=== PATIENT | male | born 1960 | race African-American/Black ===

== ENCOUNTER 2021-09-19 20:22 | Emergency (ER) | payer MEDICARE, SELFPAY ==
[~2021-09-19 20:22] MED LIST: Iopamidol 370 76% 100 ML VIAL ONE
[2021-09-19] MEDS ORDERED: Sodium Chloride 0.9% 1,000 ML ONE (21:28)
[2021-09-19] MEDS ORDERED: Morphine 4 MG/ML VIAL ONE (21:28)
[2021-09-19] MEDS ORDERED: Ondansetron PF 4 MG/2 ML Vial ONE (21:29)
[2021-09-19 22:02] LABS: Hemoglobin 14.2 g/dL (14.0-18.0); Mean Corpuscular HGB CONC 29.7 g/dL (32.0-36.0); Mean Corpuscular Hemoglobin 25.8 pg (27.0-31.0); Mean Corpuscular Volume 87.2 fL (78.0-98.0); Red Blood Cell (RBC) Count 5.51 mill/uL (4.70-6.10); White Blood Cell (WBC) Count 7.6 thou/uL (4.8-10.8)
[2021-09-19 22:03] LABS: #Lymphocytes 0.4 thou/uL (1.20-3.40); #Monocytes 0.2 thou/uL (0.11-0.59); %Basophils 0.6 % (0.0-1.0); %Eosinophils 0.1 % (0.0-10.0); %Lymphocytes 4.6 % (21.0-51.0); %Monocytes 2.9 % (0.0-10.0); %Neutrophils 91.8 % (42.0-75.0); Manual Diff?? NO; Mean Platelet Volume 9.8 fL (7.4-10.4); Platelet Count 123 thou/uL (130-400); RBC Distribution Width 16.3 % (11.5-14.5)
[2021-09-19 22:23] LABS: Carbon Dioxide 17 mmol/L (23-31); Chloride 106 mmol/L (98-107); Potassium 5.6 mmol/L (3.5-5.1); Sodium 140 mmol/L (136-145)
[2021-09-19 22:24] LABS: Anion Gap 16 mmol/L (10-20); BUN (Urea Nitrogen) 12 mg/dL (8.4-25.7); Calc. Creatinine Clearance 0 mL/min (70-130); Glucose 147 mg/dL (80-115)
[2021-09-19 22:25] LABS: ALT (SGPT) 27 U/L (8-55); AST (SGOT) 42 U/L (5-34); Albumin 4.5 g/dL (3.4-4.8); Alkaline Phosphatase 136 U/L (40-110); Bilirubin, Total 0.7 mg/dL (0.2-1.2); CK (CPK) 66 U/L (30-200); Calcium 9.7 mg/dL (7.8-10.44); Lipase 2 U/L (8-78); Protein, Total 8.5 g/dL (5.8-8.1)
[2021-09-19 23:32] LABS: Bilirubin Negative (Negative); Blood, Urine Trace (Negative); Clarity Clear (Clear); Glucose, Urine (Dipstick) >=1000 mg/dL (Negative); Ketone, Urine 15 mg/dL (Negative); Leukocyte Negative (Negative); Nitrite Negative (Negative); Protein, Urine (Dipstick) Negative (Neg-Trace); Urobilinogen 0.2 mg/dL (Less than 2)
[2021-09-19 23:36] LABS: Bacteria/HPF None Seen HPF (None Seen); RBC/HPF 0-3 HPF (0-3); Squamous Epithelial None Seen HPF (0-3); WBC/HPF 0-3 HPF (0-3)
[2021-09-19 23:41] LABS: Amphetamine Not Detected (NotDetected); Barbiturates Screen Not Detected (NotDetected); Benzodiazepine Screen Not Detected (NotDetected); Cocaine Metabolite Screen Not Detected (NotDetected); Medtox Control Line Valid? VALID (VALID); Methadone Not Detected (NotDetected); Methamphetamine Not Detected (NotDetected); Opiate Screen Detected (NotDetected); Oxycodone Screen Not Detected (NotDetected); Phencyclidine (PCP) Not Detected (NotDetected); THC/Cannabinoid Screen Detected (NotDetected); Tricyclic Screen Not Detected (NotDetected)
[2021-09-20] MEDS ORDERED: Piperacillin/Tazobactam 3.375 GM VIAL ONE (00:16)
[2021-09-20] MEDS ORDERED: INSULIN REGULAR IN 0.9 % NACL 100 UNIT/100 ML BAG ONE (00:16)
[2021-09-20] MEDS ORDERED: Sodium Chloride 0.9% 100 ML ONE (00:16)
[2021-09-20 00:38] LABS: SARS-CoV-2 NAA Rapid Test Not Detected (NotDetected)
[2021-09-20] MEDS ORDERED: Haloperidol Lactate 5 MG/ML VIAL ONE (00:59)
[2021-09-20] MEDS ORDERED: Sodium Chloride 0.45% 1,000 ML ONE ×2 (00:59→06:20)
[2021-09-20 07:37] LABS: Anion Gap 17 mmol/L (10-20); BUN (Urea Nitrogen) 11 mg/dL (8.4-25.7); Calc. Creatinine Clearance 0 mL/min (70-130); Calcium 8.6 mg/dL (7.8-10.44); Carbon Dioxide 23 mmol/L (23-31); Chloride 107 mmol/L (98-107); Glucose 126 mg/dL (80-115); Sodium 143 mmol/L (136-145)
== END 2021-09-20 09:11 | disposition home or self-care (01) ==
LOC: NAV ERS 20:22
DX: E86.0 Dehydration (principal); R11.2 Nausea with vomiting, unspecified; E87.2 Acidosis; I25.2 Old myocardial infarction; E78.5 Hyperlipidemia, unspecified; E78.00 Pure hypercholesterolemia, unspecified; I10 Essential (primary) hypertension; J45.909 Unspecified asthma, uncomplicated; F17.210 Nicotine dependence, cigarettes, uncomplicated; Z79.82 Long term (current) use of aspirin; Z79.02 Long term (current) use of antithrombotics/antiplatelets; Z20.822 Contact with and (suspected) exposure to COVID-19; Z79.899 Other long term (current) drug therapy
CPT/HCPCS: 71045; 74177; 80048; 80053; 80306; 82010; 82550; 82962; 83605; 83690; 84484; 85025; 93005; U0002; 36416; 81003; 81015; 96365; 96375; J1630; J1815; J2270; J2405; J2543; J3490; J7042; J7050; Q9967

== ENCOUNTER 2021-10-05 08:50 | Emergency (ER) | payer MEDICARE, SELFPAY ==
[2021-10-05] MEDS ORDERED: Iopamidol 370 76% 100 ML VIAL ONE (09:00)
[2021-10-05] MEDS ORDERED: Ondansetron PF 4 MG/2 ML Vial ONE ×3 (09:58→16:08)
[2021-10-05] MEDS ORDERED: Sodium Chloride 0.9% 1,000 ML ONE ×2 (10:38→16:10)
[2021-10-05 10:43] LABS: #Eosinphils 0.1 thou/uL (0.0-0.7); #Lymphocytes 0.8 thou/uL (1.20-3.40); #Monocytes 0.3 thou/uL (0.11-0.59); #Neutrophils 7.3 thou/uL (1.40-6.50); %Basophils 0.4 % (0.0-1.0); %Eosinophils 0.6 % (0.0-10.0); %Lymphocytes 9.4 % (21.0-51.0); %Monocytes 3.6 % (0.0-10.0); %Neutrophils 85.9 % (42.0-75.0); Hemoglobin 15.9 g/dL (14.0-18.0); Mean Corpuscular Hemoglobin 25.2 pg (27.0-31.0); Mean Corpuscular Volume 86.9 fL (78.0-98.0); Mean Platelet Volume 9.1 fL (7.4-10.4); Platelet Count 236 thou/uL (130-400); RBC Distribution Width 16.2 % (11.5-14.5); Red Blood Cell (RBC) Count 6.28 mill/uL (4.70-6.10); White Blood Cell (WBC) Count 8.5 thou/uL (4.8-10.8)
[2021-10-05 10:55] LABS: Bilirubin Negative (Negative); Blood, Urine Negative (Negative); Clarity Clear (Clear); Glucose, Urine (Dipstick) >=1000 mg/dL (Negative); Ketone, Urine Trace mg/dL (Negative); Leukocyte Negative (Negative); Nitrite Negative (Negative); Protein, Urine (Dipstick) Trace mg/dL (Neg-Trace); Urobilinogen 0.2 mg/dL (Less than 2)
[2021-10-05 10:58] LABS: ALT (SGPT) 28 U/L (8-55); AST (SGOT) 23 U/L (5-34); Albumin 4.9 g/dL (3.4-4.8); Alkaline Phosphatase 173 U/L (40-110); Anion Gap 18 mmol/L (10-20); BUN (Urea Nitrogen) 14 mg/dL (8.4-25.7); Bilirubin, Total 0.5 mg/dL (0.2-1.2); Calc. Creatinine Clearance 0 mL/min (70-130); Calcium 9.9 mg/dL (7.8-10.44); Carbon Dioxide 23 mmol/L (23-31); Chloride 105 mmol/L (98-107); Glucose 140 mg/dL (80-115); Lipase 8 U/L (8-78); Potassium 4.1 mmol/L (3.5-5.1); Protein, Total 8.9 g/dL (5.8-8.1); Sodium 142 mmol/L (136-145)
[2021-10-05] MEDS ORDERED: Fentanyl 100 MCG/2 ML VIAL ONE ×2 (11:36→13:28)
[2021-10-05] MEDS ORDERED: Promethazine HCl 25 MG/ML VIAL ONE (13:27)
[2021-10-05] MEDS ORDERED: Sodium Chloride 0.9% 100 ML ONE (13:28)
[2021-10-05] MEDS ORDERED: Metoprolol Tartrate 5 MG/5 ML VIAL ONE ×2 (13:30→16:09)
[2021-10-05] MEDS ORDERED: hydrALAZINE 20 MG/ML VIAL ONE (17:16)
[2021-10-05] MEDS ORDERED: Nitroglycerin 0.4 MG TAB (25 Tab Bottle) ONE (18:19)
[2021-10-05 18:31] LABS: CKMB 2.5 ng/mL (0-6.6)
== END 2021-10-05 18:56 | disposition short-term general hospital (02) ==
LOC: NAV ERS 08:50
DX: I24.9 Acute ischemic heart disease, unspecified (principal); R11.2 Nausea with vomiting, unspecified; I10 Essential (primary) hypertension; I25.2 Old myocardial infarction; E78.00 Pure hypercholesterolemia, unspecified; E78.5 Hyperlipidemia, unspecified; F17.210 Nicotine dependence, cigarettes, uncomplicated; Z79.899 Other long term (current) drug therapy
CPT/HCPCS: 36416; 74022; 74177; 80053; 81003; 82553; 83605; 83690; 84484; 85025; 93005; 96361; 96374; 96375; 96376; 36415-59; J0360; J2405; J2550; J3010; J7050; Q9967

== ENCOUNTER 2022-06-28 12:49 | Emergency (ER) | payer MEDICARE, OTHER ==
[2022-06-28] MEDS ORDERED: Sodium Chloride 0.9% 1,000 ML ONE (13:46)
[2022-06-28] MEDS ORDERED: Ondansetron PF 4 MG/2 ML Vial ONE ×2 (13:46→15:35)
[2022-06-28 14:17] LABS: #Basophils 0.1 thou/uL (0.0-0.2); #Lymphocytes 0.8 thou/uL (1.20-3.40); #Monocytes 0.3 thou/uL (0.11-0.59); #Neutrophils 6.4 thou/uL (1.40-6.50); %Basophils 0.8 % (0.0-1.0); %Eosinophils 0.5 % (0.0-10.0); %Lymphocytes 10.2 % (21.0-51.0); %Monocytes 3.8 % (0.0-10.0); %Neutrophils 84.8 % (42.0-75.0); Hemoglobin 15.4 g/dL (14.0-18.0); Mean Corpuscular HGB CONC 29.7 g/dL (32.0-36.0); Mean Corpuscular Hemoglobin 28.7 pg (27.0-31.0); Mean Corpuscular Volume 96.5 fL (78.0-98.0); Mean Platelet Volume 8.8 fL (7.4-10.4); Platelet Count 146 thou/uL (130-400); RBC Distribution Width 14.3 % (11.5-14.5); Red Blood Cell (RBC) Count 5.36 mill/uL (4.70-6.10); White Blood Cell (WBC) Count 7.6 thou/uL (4.8-10.8)
[2022-06-28 14:18] LABS: Platelet Morphology Comment Appears Adequate
[2022-06-28 14:25] LABS: ALT (SGPT) 22 U/L (8-55); AST (SGOT) 19 U/L (5-34); Albumin 4.7 g/dL (3.4-4.8); Alkaline Phosphatase 140 U/L (40-110); Anion Gap 20 mmol/L (10-20); BUN (Urea Nitrogen) 11 mg/dL (8.4-25.7); Bilirubin, Total 0.7 mg/dL (0.2-1.2); CK (CPK) 75 U/L (30-200); Calc. Creatinine Clearance 0 mL/min (70-130); Calcium 9.4 mg/dL (7.8-10.44); Carbon Dioxide 22 mmol/L (23-31); Chloride 106 mmol/L (98-107); Estimated GFR 91; Globulin 3.3 g/dL (2.4-3.5); Glucose 132 mg/dL (80-115); Sodium 144 mmol/L (136-145)
[2022-06-28 14:46] LABS: Lipase Less than 4 U/L (8-78)
[2022-06-28 15:09] LABS: Bilirubin Negative (Negative); Blood, Urine Trace (Negative); Clarity Clear (Clear); Glucose, Urine (Dipstick) >=1000 mg/dL (Negative); Ketone, Urine 40 mg/dL (Negative); Leukocyte Negative (Negative); Nitrite Negative (Negative); Protein, Urine (Dipstick) Negative (Neg-Trace); Specific Gravity, Urine 1.015 (1.005-1.030); Urobilinogen 0.2 mg/dL (Less than 2)
[2022-06-28 15:10] LABS: RBC/HPF 0-3 HPF (0-3)
[2022-06-28 15:11] LABS: Bacteria/HPF None Seen HPF (None Seen); WBC/HPF None Seen HPF (0-3)
[2022-06-28] MEDS ORDERED: Pantoprazole 40 MG VIAL ONE (15:35)
[2022-06-28] MEDS ORDERED: Metoprolol Tartrate 5 MG/5 ML VIAL ONE ×2 (15:35→16:45)
[2022-06-28] MEDS ORDERED: Aspirin Chewable 81 MG TAB ONE (15:35)
[2022-06-28 17:45] LABS: SARS-CoV-2 NAA Rapid Test Not Detected (NotDetected)
[2022-06-28 18:04] LABS: Troponin I Less than 0.010 ng/mL (< 0.028)
[2022-06-28] MEDS ORDERED: hydrALAZINE 20 MG/ML VIAL ONE (18:08)
[2022-06-28] MEDS ORDERED: Carvedilol 25 MG TAB ONE (20:07)
[2022-06-28] MEDS ORDERED: Sodium Chloride 0.9% 0 ML ONE (20:15)
[2022-06-28] MEDS ORDERED: Carvedilol 25 MG TAB PO SCH (20:15)
[2022-06-28] MEDS ORDERED: Valsartan 80 MG TAB PO SCH (20:15)
[2022-06-28] MEDS ORDERED: Sodium Chloride 0.9% 100 ML ONE (20:15)
[2022-06-28] MEDS ORDERED: Promethazine HCl 25 MG/ML VIAL ONE (20:15)
== END 2022-06-28 21:01 | disposition short-term general hospital (02) ==
LOC: NAV ERS 12:49
DX: R11.2 Nausea with vomiting, unspecified (principal); Z20.822 Contact with and (suspected) exposure to COVID-19; E78.00 Pure hypercholesterolemia, unspecified; I10 Essential (primary) hypertension; I25.2 Old myocardial infarction; Z79.82 Long term (current) use of aspirin; Z79.899 Other long term (current) drug therapy
CPT/HCPCS: 71045; 80053; 81003; 81015; 82550; 83690; 84484; 85025; 93005; 96361; 96374; 96375; 96376; C9113; J0360; J2405; J2550; J7050; U0002